=== PATIENT | male | born 1995 | race Asian ===

== ENCOUNTER 2024-01-10 08:53 | Outpatient (CLI) | payer OTHER ==
--- NOTE | 2024-01-10 17:34 | XRAY Report ---
PROCEDURE: Foot 3+V LT INDICATIONS: LEFT FOOT FRACTURE TECHNIQUE: 3 views of the foot were acquired. COMPARISON: None. FINDINGS: Bones: Small osseous fragment is seen between the base of the first and second metatarsals. No suspi cious bony lesions. Soft tissues: No tibiotalar joint effusion. Achilles tendon appears normal. IMPRESSION: Small osseous fragment is seen between the base of the first and second metatarsals. Unclear if this represents a fracture versus other chronic process. Recommend follow-up radiograph in 7-10 days to as sess stability. No other findings concerning for fracture. Reviewed by: Alfredo Brennan MD on 01/10/2024 4:33 PM [facility] Approved by: Alfredo Brennan MD on 01/10/2024 4:33 PM [facility] Station ID: [id number]
== END 2024-01-10 08:54 | disposition home or self-care (01) ==
LOC: DI 08:53
PROVIDERS: ATTEND Physician Assistant Medical
DX: S97.82XA Crushing injury of left foot, initial encounter (principal)

== ENCOUNTER 2024-01-19 08:55 | Outpatient (CLI) | payer OTHER ==
--- NOTE | 2024-01-19 12:00 | XRAY Report ---
Foot 3+V LT (Weight Bearing) HISTORY: 28 years of age, LEFT FOOT FRACTURE TECHNIQUE: Foot 3+V LT (Weight Bearing) COMPARISON: 01/10/2024. FINDINGS/IMPRESSION: Small ossification about the lateral base of the first metatarsal, concerning for small avulsion frac ture, age indeterminant, unchanged from prior exam. There is mild lateral subluxation of the second m etatarsal at the second tarsometatarsal joint, concerning for Lisfranc ligament injury. Pes planus. Joint spaces are well-maintained. Reviewed by: Kyung Romero MD on 01/19/2024 11:59 AM PDT Approved by: Kyung Romero MD on 01/19/2024 11:59 AM PDT Station ID: [id number]
== END 2024-01-19 08:56 | disposition home or self-care (01) ==
LOC: DI 08:55
PROVIDERS: ATTEND Orthopaedic Surgery
DX: S92.902A Unspecified fracture of left foot, initial encounter for closed fracture (principal); S93.322A Subluxation of tarsometatarsal joint of left foot, initial encounter; M21.42 Flat foot [pes planus] (acquired), left foot

== ENCOUNTER 2024-01-21 07:38 | Outpatient (CLI) | payer OTHER ==
--- NOTE | 2024-01-23 12:33 | MRI Report ---
PROCEDURE: Foot LT WO INDICATIONS: CRUSH INJURY L FOOT TECHNIQUE: Noncontrast sagittal T1 spin echo and T2 fast spin echo with fat saturation, long-axis T1 spin echo a nd T2 fast spin echo with fat saturation, short-axis proton density fast spin echo and T2 fast spin e cho with fat saturation through the forefoot. COMPARISON: Left foot radiographs 01/19/2024 and 01/10/2024 FINDINGS: Image quality: Excellent. Bones and joints: Nondisplaced transverse extra-articular fracture of the 4th metatarsal base with m ild surrounding osseous edema. Probable small avulsion fracture at the medial 2nd metatarsal base inv olving the Lisfranc ligament insertion corresponding to the ossification seen on prior radiographs. A reas of mild edema are seen throughout the midfoot adjacent to the tarsometatarsal joints suspicious for small osseous contusions and/or nondisplaced fractures. No acute forefoot fracture. No significan t arthritic changes. Sesamoids are normally aligned. Soft tissues: There is full-thickness tearing of the proximal interosseous Lisfranc ligament. The do rsal and plantar components also appear to be torn. Nonspecific soft tissue edema is seen throughout the dorsal aspect of the foot. Intramuscular edema is seen surrounding the midfoot. Visualized flexor and extensor tendons appear intact, without tenosynovitis. Sagittal images demonstrate no evidence for plantar plate tears. IMPRESSION: 1.Nondisplaced transverse extra-articular fracture of the 4th metatarsal base. Additional multifocal osseous contusions versus small nondisplaced fractures adjacent to the tarsometatarsal joints through out the midfoot. 2.Complete tearing of the Lisfranc ligament. Possible osseous avulsion at the insertion onto the 2nd metatarsal base, although the ossification is better seen on prior radiographs. Reviewed by: Fer Ospina MD on 01/23/2024 12:32 PM PDT Approved by: Fer Ospina MD on 01/23/2024 12:32 PM PDT Station ID: [id number]
== END 2024-01-21 07:39 | disposition home or self-care (01) ==
LOC: DI 07:38
DX: S92.342A Displaced fracture of fourth metatarsal bone, left foot, initial encounter for closed fracture (principal); S93.692A Other sprain of left foot, initial encounter

== ENCOUNTER 2024-02-23 09:36 | Outpatient (CLI) | payer OTHER ==
--- NOTE | 2024-02-25 14:21 | XRAY Report ---
PROCEDURE: Foot 3+V LT (Weight Bearing) INDICATIONS: UNSPECIFIED FX OF LEFT FOOT TECHNIQUE: 3 views of the foot were acquired. COMPARISON: 01/21/2024, 01/19/2024 FINDINGS: Bones: Fourth metatarsal base nondisplaced fracture is better seen on MRI. Avulsion fragments and wid ening of the Lisfranc interval again seen. No new fracture identified. Soft tissues: No suspicious calcifications. IMPRESSION: Similar avulsion fragments and widening of the Lisfranc interval. Fourth metatarsal base nondisplaced fracture is better seen on MRI. Reviewed by: Karri Og MD on 02/25/2024 2:19 PM PDT Approved by: Karri Og MD on 02/25/2024 2:19 PM PDT Station ID: [id number]
== END 2024-02-23 09:37 | disposition home or self-care (01) ==
LOC: DI 09:36
PROVIDERS: ATTEND Orthopaedic Surgery
DX: S92.342A Displaced fracture of fourth metatarsal bone, left foot, initial encounter for closed fracture (principal)